=== PATIENT | male | born 1960 | race Hispanic/Latino ===

== ENCOUNTER 2021-02-10 15:56 | Emergency (ER) | payer OTHER ==
[~2021-02-10 15:56] MED LIST: EPINEPHrine 1 MG/10 ML Abboject SYRINGE ONE
[2021-02-11 07:38] LABS: SARS-CoV-2 PCR by NAA Not Detected (NotDetected)
== END 2021-02-10 22:06 | disposition expired ==
LOC: NAV ERS 15:56
DX: I46.9 Cardiac arrest, cause unspecified (principal); Z20.822 Contact with and (suspected) exposure to COVID-19
CPT/HCPCS: 87635; 92950; 96374; 96376; J0171; U0003; U0005